=== PATIENT | male | born 1970 | race African-American/Black ===

== ENCOUNTER 2017-11-25 01:50 | Emergency (ER) | payer SELFPAY ==
[~2017-11-25] VITALS: Ht 172.7 cm; Wt 70.0 kg
[2017-11-25 01:54] VITALS: BP 180/94
== END 2017-11-25 02:26 | disposition left against medical advice (07) ==
LOC: ER 01:50
DX: R06.02 Shortness of breath (principal); Z53.21 Procedure and treatment not carried out due to patient leaving prior to being seen by health care provider